=== PATIENT | male | born 1945 | race Caucasian/White ===

== ENCOUNTER 2018-10-21 05:39 | Inpatient (IN) | payer MEDICARE, OTHER, BC ==
[2018-10-21] MEDS ORDERED: BUPIVACAINE 0.5% (SDV) 30 ML, morphine SULFATE (PF) 8 MG, EPINEPHrine 0.3 MG, KETOROLAC... IRR (06:00)
[2018-10-21] MEDS: SOD CHLORIDE 0.9% 100 ML, TRANEXAMIC ACID 3,000 MG IRR (06:00)
[2018-10-21] MEDS: TRANEXAMIC ACID 1,000 MG in DEXTROSE 5% 100 ML IVPB (06:00)
[2018-10-21] MEDS: CEFAZOLIN 2 GM/50 ML (PMX) 50 ML IVPB (06:00)
[2018-10-21] MEDS: GABAPENTIN 300 MG CAP PO ×3 (06:23→21:00)
[2018-10-21] MEDS: DEXAMETHASONE 1 MG TAB PO (06:23)
[2018-10-21] MEDS: POLYMYXIN/BACITRACIN 1L IRRIG (06:38)
[2018-10-21] MEDS: CA CHLORIDE 10% 10 ML SYRINGE (06:38)
[2018-10-21] MEDS: THROMBIN 5000 UNIT VIAL (06:38)
[2018-10-21] MEDS ORDERED: ROCURONIUM 50 MG INJ (07:06)
[2018-10-21] MEDS ORDERED: PROPOFOL 20 ML (07:06)
[2018-10-21] MEDS ORDERED: NEOSTIGMINE 3 MG/3 ML SYRINGE (07:06)
[2018-10-21] MEDS ORDERED: GLYCOPYRROLATE 0.4 MG INJ (07:07)
[2018-10-21] MEDS ORDERED: MIDAZOLAM 1 MG/ML 2 ML INJ (07:07)
[2018-10-21] MEDS ORDERED: CEFAZOLIN 1 GM INJ (07:07)
[2018-10-21] MEDS ORDERED: FENTAnyl 50 MCG/ML VIAL (07:07)
[2018-10-21] MEDS ORDERED: morphine SULFATE/PF (10 MG/10 ML) INJ (07:07)
[2018-10-21] MEDS ORDERED: DEXAMETHASONE 4 MG/ML 1 ML INJ (07:07)
[2018-10-21] MEDS ORDERED: ONDANSETRON 4 MG INJ (07:07)
[2018-10-21] MEDS ORDERED: PHENYLephrine (100 MCG/ML) 5ML SYG (07:22)
[2018-10-21] MEDS ORDERED: SCOPOLAMINE 1.5 MG PATCH (07:47)
[2018-10-21] MEDS ORDERED: ALBUMIN HUMAN 5% 250 ML (08:29)
[2018-10-21] MEDS ORDERED: MAGNESIUM HYDROXIDE 30ML CUP PO (09:00)
[2018-10-21] MEDS ORDERED: ACETAMINOPHEN 500 MG TAB PO (09:00)
[2018-10-21] MEDS ORDERED: TAMSULOSIN (SR) 0.4 MG CAP PO (09:00)
[2018-10-21] MEDS ORDERED: TEMAZEPAM 7.5 MG PO (09:00)
[2018-10-21] MEDS ORDERED: ONDANSETRON 4 MG INJ IV ×2 (09:30)
[2018-10-21] MEDS ORDERED: OXYCODONE/ACETAMINOPHEN (5/325) TAB PO ×2 (09:30)
[2018-10-21] MEDS ORDERED: LABETALOL HCL 20MG INJ IV (09:30)
[2018-10-21] MEDS ORDERED: NALOXONE (0.4 MG/ML) INJ IV (09:30)
[2018-10-21] MEDS ORDERED: KETOROLAC 30 MG INJ IV (09:30)
[2018-10-21] MEDS ORDERED: hydrALAzine 20 MG INJ IV (09:30)
[2018-10-21] MEDS ORDERED: NALBUPHINE HCL (10 MG/1 ML) INJ IV (09:30)
[2018-10-21] MEDS ORDERED: HYDROmorphONE 0.5 MG/0.5 ML SYG IV (09:30)
[2018-10-21] MEDS ORDERED: FENTAnyl 50 MCG/ML VIAL IV ×3 (09:30)
[2018-10-21] MEDS ORDERED: TRIMETHOBENZAMIDE 100 MG/ML VIAL IM ×2 (09:30)
[2018-10-21] MEDS ORDERED: IPRATROPIUM (NEB) 0.5 MG/2.5 ML AMP HHN (09:30)
[2018-10-21] MEDS ORDERED: EPHEDrine SULFATE 50 MG/5 ML SYG IV (09:30)
[2018-10-21] MEDS ORDERED: MEPERIDINE 25 MG INJ IV (09:30)
[2018-10-21] MEDS ORDERED: MIDAZOLAM 1 MG/ML 2 ML INJ IV (09:30)
[2018-10-21] MEDS ORDERED: DIPHENHYDRAMINE 50 MG INJ IV ×2 (09:30)
[2018-10-21] MEDS ORDERED: ALBUTEROL 0.083% (NEB) 2.5 MG/3 ML AMP HHN (09:30)
[2018-10-21] MEDS ORDERED: HYDROmorphONE 1 MG/5 ML IV SYRINGE IV ×3 (09:30)
[2018-10-21] MEDS ORDERED: CEFAZOLIN 1 GM/50 ML (PMX) 50 ML IVPB ×2 (09:56→15:00)
[2018-10-21] MEDS: TRANEXAMIC ACID 1,000 MG in DEXTROSE 5% 100 ML IV (10:13)
[2018-10-21] MEDS: ONDANSETRON 4 MG INJ IV (10:58)
[2018-10-21] MEDS: FLUOXETINE 20 MG CAP PO ×2 (10:59→20:44)
[2018-10-21] MEDS: LACTATED RINGER'S 1,000 ML IV ×2 (11:00→18:52)
[2018-10-21 11:36] LABS: ADD MAN DIFF? NO
[2018-10-21 11:39] LABS: ABNORMAL IP MESSAGE 1; BASOPHILS % 0.1 % (0.0-2.0); EOSINOPHILS % 0.1 % (0.0-7.0); HEMATOCRIT 36.1 % (42.0-52.0); HEMOGLOBIN 11.9 g/dl (14.0-18.0); LYMPHOCYTES # 0.6 10^3/ul (0.8-2.9); MEAN CORPUSCULAR HEMOGLOBIN 34.2 pg (29.0-33.0); MEAN CORPUSCULAR VOLUME 103.7 fl (82.0-101.0); MEAN PLATELET VOLUME 9.5 fl (7.4-10.4); MONOCYTE # 0.4 10^3/ul (0.3-0.9); MONOCYTES % 3.5 % (0.0-11.0); NEUTROPHIL # 10.1 10^3/ul (1.6-7.5); NEUTROPHILS % 90.8 % (39.0-77.0); PLATELET COUNT 211 10^3/UL (140-415); POSITIVE DIFF @See below; RED BLOOD COUNT 3.48 10^6/ul (4.70-6.10); RED CELL DISTRIBUTION WIDTH 12.3 % (11.5-14.5)
[2018-10-21 11:39] LABS: WHITE BLOOD COUNT 11.2 10^3/ul (4.8-10.8)
[2018-10-21] MEDS ORDERED: GABAPENTIN 300 MG CAP PO (13:00)
[2018-10-21] MEDS: SENNA/DOCUSATE NA (8.6MG/50MG) TAB PO ×2 (13:36→20:45)
[2018-10-21] MEDS: DEXAMETHASONE 2 MG TAB PO ×3 (13:36→23:51)
[2018-10-21] MEDS: CEFAZOLIN 1 GM/50 ML (PMX) 50 ML IVPB ×2 (15:53→23:51)
[2018-10-21] MEDS: HYDROmorphONE 0.5 MG/0.5 ML SYG IV (19:49)
[2018-10-21] MEDS: ATORVASTATIN 10 MG TAB PO (20:44)
[2018-10-21] MEDS: TAMSULOSIN (SR) 0.4 MG CAP PO (20:45)
[2018-10-21] MEDS: ZOLPIDEM 5 MG TAB PO ×2 (20:49→23:51)
[2018-10-22 06:06] LABS: ADD MAN DIFF? NO
[2018-10-22 06:12] LABS: WHITE BLOOD COUNT 13.6 10^3/ul (4.8-10.8)
[2018-10-22 06:12] LABS: ABNORMAL IP MESSAGE 1; BASOPHILS % 0.1 % (0.0-2.0); HEMATOCRIT 35.1 % (42.0-52.0); HEMOGLOBIN 11.8 g/dl (14.0-18.0); LYMPHOCYTES # 0.9 10^3/ul (0.8-2.9); LYMPHOCYTES % 6.2 % (15.0-51.0); MEAN CORPUSCULAR HEMOGLOBIN 34.5 pg (29.0-33.0); MEAN CORPUSCULAR HGB CONC 33.6 g/dl (32.0-37.0); MEAN CORPUSCULAR VOLUME 102.6 fl (82.0-101.0); MEAN PLATELET VOLUME 9.8 fl (7.4-10.4); MONOCYTE # 1.7 10^3/ul (0.3-0.9); MONOCYTES % 12.7 % (0.0-11.0); NEUTROPHILS % 80.6 % (39.0-77.0); PLATELET COUNT 212 10^3/UL (140-415); POSITIVE DIFF @See below; RED BLOOD COUNT 3.42 10^6/ul (4.70-6.10); RED CELL DISTRIBUTION WIDTH 12.2 % (11.5-14.5)
[2018-10-22] MEDS: LACTATED RINGER'S 1,000 ML IV ×3 (06:38→22:38)
[2018-10-22] MEDS: DEXAMETHASONE 2 MG TAB PO (06:38)
[2018-10-22] MEDS ORDERED: DIPHENHYDRAMINE 50 MG INJ IV (07:30)
[2018-10-22] MEDS ORDERED: KETOROLAC 15 MG INJ IV (07:30)
[2018-10-22] MEDS ORDERED: morphine 2 MG INJ IV ×2 (07:30)
[2018-10-22] MEDS: ASPIRIN 81 MG TAB PO (09:12)
[2018-10-22] MEDS: SENNA/DOCUSATE NA (8.6MG/50MG) TAB PO ×2 (09:13→21:07)
[2018-10-22] MEDS: GABAPENTIN 300 MG CAP PO ×3 (09:13→21:06)
[2018-10-22] MEDS: OXYCODONE/ACETAMINOPHEN (5/325) TAB PO ×2 (09:16→13:43)
[2018-10-22] MEDS: ONDANSETRON 4 MG INJ IV (21:02)
[2018-10-22] MEDS: FLUOXETINE 20 MG CAP PO (21:06)
[2018-10-22] MEDS: TAMSULOSIN (SR) 0.4 MG CAP PO (21:06)
[2018-10-22] MEDS: ATORVASTATIN 10 MG TAB PO (21:07)
[2018-10-23] MEDS: ZOLPIDEM 5 MG TAB PO (01:17)
[2018-10-23] MEDS: OXYCODONE/ACETAMINOPHEN (5/325) TAB PO (01:17)
[2018-10-23 05:17] LABS: ADD MAN DIFF? NO
[2018-10-23 05:21] LABS: WHITE BLOOD COUNT 13.5 10^3/ul (4.8-10.8)
[2018-10-23 05:21] LABS: ABNORMAL IP MESSAGE 1; BASOPHILS % 0.1 % (0.0-2.0); EOSINOPHILS % 0.1 % (0.0-7.0); HEMATOCRIT 36.9 % (42.0-52.0); HEMOGLOBIN 12.6 g/dl (14.0-18.0); LYMPHOCYTES # 2.2 10^3/ul (0.8-2.9); LYMPHOCYTES % 16.7 % (15.0-51.0); MEAN CORPUSCULAR HEMOGLOBIN 35.2 pg (29.0-33.0); MEAN CORPUSCULAR HGB CONC 34.1 g/dl (32.0-37.0); MEAN CORPUSCULAR VOLUME 103.1 fl (82.0-101.0); MEAN PLATELET VOLUME 9.9 fl (7.4-10.4); MONOCYTE # 2.2 10^3/ul (0.3-0.9); MONOCYTES % 16.1 % (0.0-11.0); NEUTROPHIL # 8.9 10^3/ul (1.6-7.5); NEUTROPHILS % 66.5 % (39.0-77.0); PLATELET COUNT 228 10^3/UL (140-415); POSITIVE DIFF @See below; RED BLOOD COUNT 3.58 10^6/ul (4.70-6.10); RED CELL DISTRIBUTION WIDTH 12.5 % (11.5-14.5)
[2018-10-23] MEDS: ONDANSETRON 4 MG INJ IV (09:25)
[2018-10-23] MEDS: SENNA/DOCUSATE NA (8.6MG/50MG) TAB PO (11:48)
[2018-10-23] MEDS: ASPIRIN 81 MG TAB PO (11:48)
[2018-10-23] MEDS: GABAPENTIN 300 MG CAP PO (11:52)
== END 2018-10-23 14:15 | disposition home or self-care (01) | DRG 470 ==
LOC: REC 05:39 → MS1 10:32
PROVIDERS: Orthopaedic Surgery
PROC: 0SR906A Replacement of Right Hip Joint with Oxidized Zirconium on Polyethylene Synthetic Substitute, Uncemented, Open Approach (ICD-10-PCS; principal; 2018-10-21 07:00)
DX: M16.11 Unilateral primary osteoarthritis, right hip (principal); E78.5 Hyperlipidemia, unspecified; E11.9 Type 2 diabetes mellitus without complications; N40.0 Benign prostatic hyperplasia without lower urinary tract symptoms
CPT/HCPCS: 72170; 73530; 85025; 86999; 87086; 88304; 88311; 97110; 97116; 97162; 97530